=== PATIENT | male | born 1960 | race Caucasian/White ===

== ENCOUNTER 2019-08-12 10:58 | Inpatient (IN) | payer OTHER ==
[2019-08-09 10:16] VITALS: BMI 55.4
[~2019-08-12 10:58] MED LIST: BUPIVACAINE HCL/PF 0.25% (2.5MG/ML) 10 ML VIAL IJ ONE
[2019-08-12] MEDS ORDERED: ROPIVACAINE HCL 0.5% 30ML VIAL ONE (11:31)
[2019-08-12] MEDS ORDERED: MIDAZOLAM HCL 2 MG/2 ML SINGLE DOSE VIAL ONE ×2 (11:31→14:11)
--- NOTE | 2019-08-12 11:46 | HP ---
Admitting History and Physical - Admission Chief Complaint: Morbid obesity History Source: Patient Limitations to Obtaining History: No Limitations - Past Medical History Cardiovascular: Yes: HTN Pulmonary: Yes: Sleep Apnea - Past Surgical History Additional Past Surgical History: Pilinidal cyst surgery - Advance Directives Advance Directives: Yes: Health Care Proxy - Smoking History Smoking history: Former smoker Have you smoked in the past 12 months: Yes Aproximately how many cigarettes per day: 20 If you are a former smoker, when did you quit?: 2 WEEKS AGO - Alcohol/Substance Use Hx Alcohol Use: No - Social History ADL: Independent Home Medications - Allergies Allergies/Adverse Reactions: Allergies Allergy/AdvReac Type Severity Reaction Status Date / Time No Known Allergies Allergy Verified 08/09/19 10:02 - Home Medications Home Medications: Ambulatory Orders Hydrochlorothiazide [Hctz -] 25 mg PO DAILY 08/09/19 Lorazepam [Ativan] 1 mg PO DAILY 08/09/19 Multivitamins [Tab-A-Vit -] 1 tab PO DAILY 08/09/19 Docusate Sodium [Colace -] 100 mg PO TID #90 capsule 08/12/19 Famotidine [Pepcid] 20 mg PO BID #60 tablet 08/12/19 Ondansetron [Zofran -] 8 mg PO TID #30 tablet 08/12/19 Oxycodone HCl/Acetaminophen [Percocet 5-325 mg Tablet] 1 - 2 tab PO Q6H #28 tab MDD 4 08/12/19 Family Medical History Family History: Denies Review of Systems - Review of Systems Constitutional: denies: Chills, Fever HENT: reports: No Symptoms Neck: reports: No Symptoms Cardiovascular: reports: No Symptoms Respiratory: reports: No Symptoms Gastrointestinal: reports: No Symptoms Neurological: reports: No Symptoms Pain Intensity: 0 Physical Examination Constitutional: Yes: Calm HENT: Yes: WNL Neck: Yes: WNL Cardiovascular: Yes: WNL Respiratory: Yes: Regular Gastrointestinal: Yes: Soft, Abdomen, Obese Neurological: Yes: Alert, Oriented Problem List - Problems (1) Morbid obesity due to excess calories Code(s): E66.01 - MORBID (SEVERE) OBESITY DUE TO EXCESS CALORIES (2) Obstructive sleep apnea Code(s): G47.33 - OBSTRUCTIVE SLEEP APNEA (ADULT) (PEDIATRIC) (3) Hypertension Code(s): I10 - ESSENTIAL (PRIMARY) HYPERTENSION Qualifiers: Hypertension type: unspecified Qualified Code(s): I10 - Essential (primary ) hypertension Assessment/Plan Laparoscopic possible open vertical sleeve gastrectomy possible liver biopsy, upper endoscopy
[2019-08-12] MEDS ORDERED: LIDOCAINE HCL/PF 2% SDV 5ML VIAL ONE ×2 (13:53→13:57)
[2019-08-12] MEDS ORDERED: ROCURONIUM BROMIDE 50 MG/5 ML SYRINGE ONE ×3 (13:54→14:56)
[2019-08-12] MEDS ORDERED: PROPOFOL 0 ML ONE (13:54)
[2019-08-12] MEDS ORDERED: DEXAMETHASONE SOD PHOSPHATE 4 MG/1 ML VIAL ONE (14:11)
[2019-08-12] MEDS ORDERED: ceFAZolin SODIUM 1 GM VIAL ONE (14:11)
[2019-08-12] MEDS ORDERED: fentaNYL CITRATE 250 MCG/5 ML VIAL ONE (14:11)
[2019-08-12] MEDS ORDERED: PROPOFOL 20 ML ONE ×2 (14:11)
[2019-08-12] MEDS ORDERED: SUCCINYLCHOLINE CHLORIDE 200 MG/10 ML SYRINGE ONE (14:12)
[2019-08-12] MEDS ORDERED: ACETAMINOPHEN INJECTION 100 ML IVPB ONE (14:29)
[2019-08-12] MEDS ORDERED: KETAMINE HCL 500 MG/10 ML VIAL ONE (14:30)
[2019-08-12] MEDS ORDERED: BUPIVACAINE HCL 0.25% 125 MG/50 ML VIAL ONE (14:33)
[2019-08-12] MEDS ORDERED: HYDROmorphone HCL/PF 1 MG/ML AMP ONE (15:18)
[2019-08-12] MEDS ORDERED: NEOSTIGMINE METHYLSULFATE 0.5 MG/ML - 10 ML MDV ONE (15:50)
[2019-08-12] MEDS ORDERED: GLYCOPYRROLATE 0.2 MG/1 ML VIAL ONE (15:52)
[2019-08-12] MEDS ORDERED: METOPROLOL TARTRATE 5 MG/5 ML VIAL ONE (15:57)
[2019-08-12] MEDS ORDERED: BUPIVACAINE HCL/PF 0.25% (2.5MG/ML) 10 ML VIAL IJ ONE (16:28)
[2019-08-12] MEDS ORDERED: SODIUM CHLORIDE 1,000 ML IV SCH (16:45)
[2019-08-12] MEDS ORDERED: ACETAMINOPHEN 1000 MG/100 ML VIAL (NON FORMULARY) IVPB SCH (16:45)
--- NOTE | 2019-08-12 16:47 | OPR ---
Operative Note Operative Date: 08/12/19 Pre-Operative Diagnosis: Morbid obesity; BMI 55.4 Operation: 1. Diagnostic laparoscopy. 2. Laparoscopic vertical sleeve gastrectomy. 3. Laparoscopic wedge liver biopsy. 4. Laparoscopic oversewing of gastric staple line 5. Laparoscopic lysis of adhesions Post-Operative Diagnosis: Same as Pre-op (as well as hepatomegaly, oozing from gastric staple line, and intraabdominal adhesions) Surgeon: Baljit Beavers Senior Property Manager: Polo Andrew Anesthesia: General Specimens Removed: Greater curvature of stomach. Liver biopsy. Estimated Blood Loss (mls): 30 Drains & Tubes with Location: 36 Fr Bougie Operative Report Dictated: Yes
[2019-08-12] MEDS ORDERED: LABETALOL HCL 5 MG/1 ML (100MG/20 ML VIAL) ONE (16:49)
--- NOTE | 2019-08-12 17:38 | SPEC ---
DATE OF OPERATION: 08/12/2019 PLACE OF SERVICE: [facility], [address] [place] [address] SURGEON: Baljit Beavers MD OUTSIDE MACHINIST HELPER: Polo Andrew MD PREOPERATIVE DIAGNOSES: 1. Morbid obesity. 2. Body mass index of 55.4. 3. Hypertension. 4. Obstructive sleep apnea. POSTOPERATIVE DIAGNOSES: 1. Morbid obesity. 2. Body mass index of 55.4. 3. Hypertension. 4. Obstructive sleep apnea. 5. Intra-abdominal adhesions. 6. Hepatomegaly. 7. Oozing from gastric staple line. PROCEDURES: 1. Diagnostic laparoscopy. 2. Laparoscopic vertical sleeve gastrectomy. 3. Laparoscopic wedge liver biopsy. 4. Laparoscopic lysis of adhesions. 5. Laparoscopic over sewing of gastric staple line. SPECIMENS: 1. Greater curvature of the stomach. 2. Liver biopsy. ESTIMATED BLOOD LOSS: 30 mL. DRAINS: None. ANESTHESIA: GET. BOUGIE SIZE: 36-Brazilian. REASON FOR PROCEDURE: This is a 58-year-old gentleman who presents to the office for weight loss options. After describing different options, he decided to proceed with a laparoscopic, possible open, vertical sleeve gastrectomy, possible liver biopsy, upper endoscopy. The patient was seen by the respective subspecialties and cleared for surgery. The risks and benefits of the procedure were explained. These included bleeding, infection, hernia, AK, DVT, PE, injury to surrounding structures including the liver, colon, bowel, spleen, esophagus, vessel injury, nerve injury, weight regain, gastric leak, staple line leak, sleeve leak, obstruction, vitamin deficiency, hair loss and as some of the possible complications. The patient understood and signed informed consent. DESCRIPTION OF PROCEDURE: The patient was placed supine on the operating room table. The patient underwent general endotracheal intubation. The arms were brought out at 90 degrees and secured. A footboard was placed and the legs were secured laterally with padding. The abdomen was prepped and draped in the usual sterile fashion. A timeout was performed. An incision was made in the left upper quadrant and a Veress needle inserted. Pneumoperitoneum was established. Subsequently, the Veress needle was removed and a 5-mm trocar was placed under direct visualization with the laparoscope. The laparoscopic camera was then inserted and inspection of the abdominal cavity was performed. An incision was then made in the supraumbilical area and a 15-mm trocar was placed under direct visualization. A 5-mm trocar was then placed in the right upper quadrant and a 5-mm trocar was placed below the left subcostal margin. A stab wound was made in the subxiphoid area and a Margaret clamp inserted and removed to dilate the tract. A Germaine liver retractor was inserted. The post was secured at the bedside by the nursing staff. The patient was placed in steep reverse Trendelenburg position and the Germaine liver retractor was used to secure the liver towards the anterior abdominal wall. At the beginning of the case, it was noted that he had dense adhesions from the stomach to the pancreas. In order to free the stomach up and the greater curvature to proceed with the vertical sleeve gastrectomy, these adhesions needed to be carefully lysed to free the stomach from the posteriorly located pancreas. This was carefully done using Endo Chelsea and sharp dissection. Once the stomach was freed from the pancreas, the remainder of the case was continued. The pylorus was identified and 6 cm proximal to it, the lesser sac was entered using the LigaSure device. All lateral attachments to the greater curvature of the stomach, including the short gastric vessels, were ligated using the LigaSure device toward the gastrosplenic and gastrophrenic ligaments. Once this was done in its entirety, it was confirmed that all tubes within the nasal or oropharyngeal cavity, including a temperature probe were removed by Anesthesia. The bougie was then inserted by Anesthesia. Transection of the stomach was then begun staying adjacent to the bougie but away from the angularis. Transection of the stomach was performed near the portion of the stomach where the lesser sac was entered. Two laparoscopic Endo-JOSE ANTONIO black eden were used at this location. Laparoscopic Endo JOSE ANTONIO purple staple loads were then used for the remainder of the transection until the greater curvature of the stomach was fully transected. This was done staying close to the bougie. Care was taken to stay away from the angle of His cephalad. The staple line was then inspected. Hemostasis was identified. A leak test was then performed. It was clamped distally to the staple line. Irrigation solution was placed in the left upper quadrant and air was insufflated by Anesthesia into the sleeve. No leaks were identified. No obstruction was identified. This was done through the entirety of the staple line. The stomach was suctioned and the bougie removed fully intact under direct visualization. At this point, the irrigation solution was suctioned and again, hemostasis was noted. A wedge liver biopsy was then performed. The left lobe of the liver was identified. A portion of the edge of the left lobe of the liver was grasped. Using electrocautery, a wedge of the left liver was excised. The specimen was removed and sent off the field. Hemostasis of the wedge liver biopsy site was attained and noted using electrocautery. The 15-mm supraumbilical trocar was then removed and the greater curvature specimen removed from the site using a sponge stick carlisle. A Darrell-Rizwan device was then used to close the fascia with a 0 Vicryl suture at the site. Again, hemostasis was noted. The Germaine liver retractor was then removed under direct visualization. Pneumoperitoneum was desufflated. In addition, please note that there were several areas that needed to be over sewn due to oozing from the gastric staple line. This was done laparoscopically at the end of the stapling portion of the vertical sleeve gastrectomy. The Endo Stitch suturing device was used with an Ethibond suture to over sew the oozing portion of the gastric staple line. At the end, hemostasis was noted. Hemostasis was noted at all incision sites and Marcaine was injected at all incision sites. A 3-0 Vicryl suture was used to close the deep subcutaneous tissue at the 15-mm incision site. All incision sites were closed using 4-0 Biosyn. Sterile dressings were applied. The patient tolerated the procedure well and was transferred to the recovery room in stable condition. Freddy [id number] MTDD
[2019-08-12] MEDS: METOCLOPRAMIDE HCL INJECTION 10 MG/2 ML VIAL IVPUSH SCH ×2 (17:50→22:04)
[2019-08-12] MEDS ORDERED: ONDANSETRON 4 MG/2 ML VIAL IVPUSH PRN (17:55)
[2019-08-12] MEDS ORDERED: LACTATED RINGERS SOLUTION 1,000 ML IV SCH (18:00)
[2019-08-12] MEDS ORDERED: ONDANSETRON 4 MG/2 ML VIAL ONE (18:22)
[2019-08-12 18:35] LABS: HEMATOCRIT 48.2 % (35.4-49); HEMOGLOBIN 15.9 GM/dl (11.7-16.9); MCH 28.5 pg (25.7-33.7); MEAN CELL VOLUME 86.5 fl (80-96); MEAN PLT VOLUME 8.4 fl (7.5-11.1); PLATELET COUNT 330 K/MM3 (134-434); RBC 5.57 M/mm3 (4.00-5.60); RDW 14.8 % (11.9-15.9); WHITE BLOOD COUNT 16.4 K/mm3 (4.0-10.8)
[2019-08-12 18:57] LABS: ALBUMIN 3.7 g/dl (3.4-5.0); BILIRUBIN,TOTAL 0.6 mg/dl (0.2-1); CALCIUM 8.5 mg/dl (8.5-10); CREATININE 1.1 mg/dl (0.55-1.3); POTASSIUM 3.8 mmol/L (3.5-5.1); TOT PROT 7.7 g/dl (6.4-8.2)
[2019-08-12] MEDS: ACETAMINOPHEN 1000 MG/100 ML VIAL (NON FORMULARY) IVPB SCH (19:32)
[2019-08-12] MEDS: ENOXAPARIN NA (PORCINE) 60 MG/0.6 ML DISP.SYRIN SQ SCH (21:10)
[2019-08-12] MEDS: ONDANSETRON 4 MG/2 ML VIAL IVPUSH SCH (21:11)
[2019-08-12] MEDS: HYDROmorphone HCL CARPU-JECT 1 MG/1 ML DISP.SYRIN IVPB PRN (21:41)
[2019-08-12] MEDS ORDERED: FAMOTIDINE 20 MG/50 ML IVPB 20 MG/50 ML MG IVPB SCH (22:00)
[2019-08-13] MEDS: ONDANSETRON 4 MG/2 ML VIAL IVPUSH SCH ×4 (01:19→14:05)
[2019-08-13] MEDS: ACETAMINOPHEN 1000 MG/100 ML VIAL (NON FORMULARY) IVPB SCH ×3 (01:19→14:04)
[2019-08-13] MEDS: HYDROmorphone HCL CARPU-JECT 1 MG/1 ML DISP.SYRIN IVPB PRN ×3 (03:29→10:26)
[2019-08-13] MEDS: METOCLOPRAMIDE HCL INJECTION 10 MG/2 ML VIAL IVPUSH SCH ×2 (04:21→12:36)
--- NOTE | 2019-08-13 07:57 | PN ---
Progress Note (short form) - Note Progress Note: BARIATRIC SURGERY POD #1 s/p Laprascopic sleeve gastrectomy. Wedge Liver biopsy. ALLISON No acute events per RN notes. Alert. C/o mild incisional tenderness. Adequate pain control w/ medications ordered. Using incentive spirometer as directed. OOB and ambulating unassisted. Voiding spontaneously. Denies n/v/f/c, CP, palpitations, SOB or ISAACS. Last Vital Signs Temp Pulse Resp BP Pulse Ox 98.7 F 90 20 127/74 94 L // 05:58 /06/22 05:58 08/13/19 05:58 08/13/19 05:58 08/13/19 05:58 Gen: alert. nad ABD: obese habitus. All surgical ports c/d/i. LE: SCDs bilat POD #1 s/p Laparoscopic vertical sleeve gastrectomy. Wedge liver biopsy. Going for UGI this morning, if negative will begin Bariatric Stage 1 Diet. Cont OOB and ambulate Incentive spirometer Pain management DVT PPX If tolerates diet will DC home later today <Hernan Prescott - Last Filed: 08/13/19 07:56> - Note Progress Note: POD 1 No acute events Vital Signs Period Temp Pulse Resp BP Sys/Hobson Pulse Ox Last 24 Hr 98.1 F-98.7 F 81-91 17-26 109-163/52-94 91-95 Abd soft CBC, BMP /06/22 07:28 08/13/19 07:28 UGI pending results If no leak/obstruction, will start clears and plan discharge <Baljit Beavers - Last Filed: 08/13/19 12:57> Problem List - Problems (1) Morbid obesity due to excess calories Assessment/Plan: POD #1 s/p Laparoscopic vertical sleeve gastrectomy. Wedge liver biopsy. Going for UGI this morning, if negative will begin Bariatric Stage 1 Diet. Cont OOB and ambulate Incentive spirometer Pain management DVT PPX If tolerates diet will DC home later today Code(s): E66.01 - MORBID (SEVERE) OBESITY DUE TO EXCESS CALORIES (2) Hepatomegaly Code(s): R16.0 - HEPATOMEGALY, NOT ELSEWHERE CLASSIFIED (3) Hypertension Code(s): I10 - ESSENTIAL (PRIMARY) HYPERTENSION Qualifiers: Hypertension type: unspecified Qualified Code(s): I10 - Essential (primary ) hypertension (4) Intra-abdominal adhesions Code(s): K66.0 - PERITONEAL ADHESIONS (POSTPROCEDURAL) (POSTINFECTION) (5) Obstructive sleep apnea Code(s): G47.33 - OBSTRUCTIVE SLEEP APNEA (ADULT) (PEDIATRIC) <Hernan Prescott - Last Filed: 08/13/19 07:56> - Problems (1) Morbid obesity due to excess calories Code(s): E66.01 - MORBID (SEVERE) OBESITY DUE TO EXCESS CALORIES (2) Obstructive sleep apnea Code(s): G47.33 - OBSTRUCTIVE SLEEP APNEA (ADULT) (PEDIATRIC) (3) Hypertension Code(s): I10 - ESSENTIAL (PRIMARY) HYPERTENSION Qualifiers: Hypertension type: unspecified Qualified Code(s): I10 - Essential (primary ) hypertension <Baljit Beavers - Last Filed: 08/13/19 12:57>
[2019-08-13 08:17] LABS: HEMATOCRIT 43.5 % (35.4-49); HEMOGLOBIN 14.8 GM/dl (11.7-16.9); MCH 29.3 pg (25.7-33.7); MEAN PLT VOLUME 8.4 fl (7.5-11.1); PLATELET COUNT 286 K/MM3 (134-434); RBC 5.06 M/mm3 (4.00-5.60); RDW 14.9 % (11.9-15.9); WHITE BLOOD COUNT 14.2 K/mm3 (4.0-10.8)
[2019-08-13 09:03] LABS: ALBUMIN 3.3 g/dl (3.4-5.0); BILIRUBIN,TOTAL 0.8 mg/dl (0.2-1); CALCIUM 7.9 mg/dl (8.5-10); CREATININE 0.8 mg/dl (0.55-1.3); POTASSIUM 3.9 mmol/L (3.5-5.1); TOT PROT 7.2 g/dl (6.4-8.2)
[2019-08-13] MEDS ORDERED: FAMOTIDINE 20 MG/50 ML IVPB 20 MG/50 ML MG IVPB SCH (10:00)
[2019-08-13] MEDS: ENOXAPARIN NA (PORCINE) 60 MG/0.6 ML DISP.SYRIN SQ SCH (10:26)
[2019-08-13] MEDS ORDERED: oxyCODONE HCL 5 MG TABLET PO PRN (13:44)
[2019-08-13] MEDS ORDERED: SODIUM CHLORIDE 1,000 ML IV SCH (13:45)
--- NOTE | 2019-08-13 15:19 | PN ---
Progress Note, Physician Chief Complaint: s/pp gastric sleeve under general anesthesia History of Present Illness: post op day one, some post op respiratory support needed - Current Medication List Current Medications: Active Medications Enoxaparin Sodium (Lovenox -) 60 mg SQ BID [facility] Last Admin: 08/13/19 10:26 Dose: 60 mg Hydromorphone HCl (Dilaudid Injection -) 1 mg IVPB Q3H PRN PRN Reason: PAIN LEVEL 4 - 6 Last Admin: 08/13/19 10:26 Dose: 1 mg Famotidine/Sodium Chloride (Pepcid 20 Mg Premixed Ivpb -) 20 mg in 50 mls @ 100 mls/hr IVPB BID [facility] Last Admin: 08/13/19 10:26 Dose: 100 mls/hr Sodium Chloride (Normal Saline -) 1,000 mls @ 75 mls/hr IV ASDIR [facility] Last Admin: 08/13/19 14:05 Dose: 75 mls/hr Metoclopramide HCl (Reglan Injection -) 10 mg IVPUSH Q6H [facility] Last Admin: 08/13/19 12:36 Dose: 10 mg Ondansetron HCl (Zofran Injection) 4 mg IVPUSH Q4H [facility] Last Admin: 08/13/19 14:05 Dose: 4 mg Oxycodone HCl (Roxicodone -) 5 mg PO Q4H PRN PRN Reason: PAIN LEVEL 1-5 - Objective Vital Signs: Vital Signs Temperature 98.3 F 08/13/19 10:00 Pulse Rate 87 08/13/19 10:00 Respiratory Rate 17 08/13/19 10:00 Blood Pressure 118/52 L 08/13/19 10:00 O2 Sat by Pulse Oximetry (%) 91 L 08/13/19 10:00 Constitutional: Yes: Well Nourished Cardiovascular: Yes: WNL Respiratory: Yes: On Nasal O2 Gastrointestinal: Yes: WNL Labs: CBC, BMP 08/13/19 07:28 08/13/19 07:28 Assessment/Plan Doing well, no anesthetic complications persistent, dept of anesthesiology will sign off care at this time
[2019-08-13 15:29] VITALS: BP 125/78; PULSE 81; TEMP 97.8
--- NOTE | 2019-08-15 11:35 | PATH ---
Surgical Pathology Report Patient Name: OLY PACK Med. Rec. #: [id number] /Age/Gender: 1960 (Age: 58) / M Account: [id number] Location: [facility] MED-SURG Taken: 08/12/2019 Received: 08/12/2019 Reported: 08/15/2019 Physicians: Baljit Beavers M.D. Specimen(s) Received A: GREATER CURVATURE STOMACH B: LIVER BIOPSY Clinical History Morbid obesity Final Diagnosis A. GREATER CURVATURE OF STOMACH, LAPAROSCOPIC GASTRIC SLEEVE EXCISION: PORTION OF STOMACH WITH NO SIGNIFICANT PATHOLOGIC FINDINGS. IMMUNOSTAIN IS NEGATIVE FOR H. PYLORI ORGANISMS. B. LIVER, BIOPSY: LIVER SHOWING SEVERE STEATOSIS (~70%) WITH MODERATE STEATOHEPATITIS (GRADE 2/3). TRICHROME STAIN SHOWS EXTENSIVE PERICELLULAR/PERISINUSOIDAL AND PORTAL FIBROSIS WELL PROMINENT BRIDGING FIBROSIS (3/4). (SEE COMMENT). Comment: The Non-Alcoholic Steatosis (KENDRA) score is 6/9 (steatosis: 3/3; lobular inflammation: 2/3; hepatocyte balloonin/3). The KENDRA fibrosis score is 3/4 (bridging fibrosis). Electronically Signed Kinga Cifuentes M.D. Gross Description A. Received in formalin, labeled "greater curvature of stomach," is a 155 gram, 27.0 x 3.8 x 3.3 cm. previously opened portion of stomach with a stapled margin of resection. The serosa is velarde-thacker with a focal defect and minimal attached fat. The mucosa is velarde-pink with normal folds. No mucosal masses are identified. [employer] sections are submitted in one cassette. B. Received in formalin labeled "liver biopsy," is a 2.4 x 1.0 x 0.4 cm velarde, irregular portion of soft tissue. The specimen is bisected and entirely submitted in one cassette. 08/13/201908/13/2019
== END 2019-08-13 15:58 | disposition home or self-care (01) | DRG 621 ==
LOC: FM/S 10:58
PROVIDERS: ADMIT Surgery; ATTEND Surgery
PROC: 0DNW4ZZ Release Peritoneum, Percutaneous Endoscopic Approach (ICD-10-PCS; 2019-08-12)
PROC: 0DB64Z3 Excision of Stomach, Percutaneous Endoscopic Approach, Vertical (ICD-10-PCS; principal; 2019-08-12 15:15)
PROC: 0FB24ZX Excision of Left Lobe Liver, Percutaneous Endoscopic Approach, Diagnostic (ICD-10-PCS; 2019-08-12 15:15)
DX: E66.01 Morbid (severe) obesity due to excess calories (principal); Z68.43 Body mass index [BMI] 50.0-59.9, adult; I10 Essential (primary) hypertension; G47.33 Obstructive sleep apnea (adult) (pediatric); R16.0 Hepatomegaly, not elsewhere classified; K66.0 Peritoneal adhesions (postprocedural) (postinfection)
CPT/HCPCS: 36415; 74241-TC-FY; 80053; 85027; 94660; 94760; J0131; J7030; Q9967